=== PATIENT | male | born 1950 | race Caucasian/White ===

== ENCOUNTER 2017-01-03 12:18 | Outpatient (CLI) | payer MEDICARE ==
[2017-01-03 16:02] LABS: Bilirubin Negative (Negative); Blood, Urine Trace (Negative); Glucose, Urine (Dipstick) Negative (Negative); Ketone, Urine Negative (Negative); Nitrite Negative (Negative); Protein, Urine (Dipstick) Negative (Neg-Trace); Urobilinogen 0.2 mg/dL (0.2-1.0)
--- NOTE | 2017-01-03 16:03 | RAD ---
CHEST TWO VIEWS: History: Pre op. Comparison: None. FINDINGS: Lungs are clear. No pneumothorax or effusion. Cardiac silhouette and mediastinal contours are within normal limits. IMPRESSION: No acute intrathoracic abnormality. POS: [facility]
[2017-01-03 16:14] LABS: #Eosinphils 0.2 thou/uL (0.0-0.7); #Lymphocytes 1.9 thou/uL (1.20-3.40); #Monocytes 0.8 thou/uL (0.11-0.59); #Neutrophils 3.4 thou/uL (1.40-6.50); %Basophils 0.6 % (0.0-1.0); %Eosinophils 3.1 % (0.0-10.0); %Lymphocytes 30.1 % (21.0-51.0); %Monocytes 12.1 % (0.0-10.0); Hematocrit 44.1 % (42.0-52.0); Mean Platelet Volume 8.2 fL (7.4-10.4); Red Blood Cell (RBC) Count 4.44 mill/uL (4.70-6.10); White Blood Cell (WBC) Count 6.3 thou/uL (4.8-10.8)
[2017-01-03 16:14] LABS: Bacteria/HPF None Seen HPF (None Seen); Hyaline Casts/LPF 0-3 HYALINE CAST LPF (0-3 Hyaline); Squamous Epithelial None Seen HPF (0-3); WBC/HPF 0-3 HPF (0-3)
[2017-01-03 16:16] LABS: PTT 31.8 SEC (22.9-36.1); Prothrombin Time 13.8 SEC (12.0-14.7)
[2017-01-03 16:25] LABS: Anion Gap 12 mmol/L (10-20); BUN (Urea Nitrogen) 23 mg/dL (8.4-25.7); Calc. Creatinine Clearance 0 mL/min (70-130); Calcium 10.9 mg/dL (7.8-10.44); Carbon Dioxide 30 mmol/L (23-31); Chloride 103 mmol/L (98-107); Estimated GFR-MDRD Greater than 90
== END 2017-01-03 12:19 | disposition home or self-care (01) ==
LOC: LABBT 12:18
PROVIDERS: ATTEND Orthopaedic Surgery
DX: Z01.818 Encounter for other preprocedural examination (principal); M16.11 Unilateral primary osteoarthritis, right hip
CPT/HCPCS: 71020; 80048; 81001; 85025; 85610; 85730; 86850; 86900; 86901; 87081; 93005; 93010

== ENCOUNTER 2017-01-03 12:30 | Inpatient (IN) | payer MEDICARE ==
[2017-01-03 13:07] VITALS: BMI 30.5
[2017-01-10] MEDS ORDERED: Tranexamic Acid 1,000 MG/100 ML BAG ONE ×2 (08:21→11:55)
[2017-01-10] MEDS ORDERED: Vancomycin HCl 1.5 GM in Sodium Chloride 0.9% 250 ML 300 ML IVPB SCH (08:30)
[2017-01-10] MEDS ORDERED: Ondansetron HCl/PF 4 MG/2 ML Vial IVP PRN ×3 (08:38→10:21)
[2017-01-10] MEDS ORDERED: Zolpidem Tartrate 5 MG TAB PO PRN ×2 (08:38→09:30)
[2017-01-10] MEDS ORDERED: diphenhydrAMINE HCl 25 MG CAP PO PRN ×2 (08:38→09:30)
[2017-01-10] MEDS ORDERED: HYDROcodone/Acetaminophen 10/325 mg Tablet PO PRN ×2 (08:38)
[2017-01-10] MEDS ORDERED: Promethazine HCl 25 MG/ML VIAL IM PRN ×3 (08:38→10:21)
[2017-01-10] MEDS ORDERED: traMADol HCl 50 MG TAB PO PRN ×3 (08:38→09:30)
[2017-01-10] MEDS ORDERED: Fentanyl 100 MCG/2 ML VIAL SLOW IVP PRN ×2 (08:38)
[2017-01-10] MEDS ORDERED: Tranexamic Acid 1,000 MG in Sodium Chloride 0.9% 100 ML IVPB SCH (08:45)
[2017-01-10] MEDS ORDERED: Midazolam HCl 2 mg/2 ml Vial ONE (08:58)
[2017-01-10] MEDS ORDERED: Fentanyl 100 MCG/2 ML VIAL ONE (08:58)
[2017-01-10] MEDS: Aspirin 325 MG TAB PO SCH ×2 (09:00→20:35)
[2017-01-10 09:08] LABS: Bilirubin Negative (Negative); Blood, Urine Small (Negative); Glucose, Urine (Dipstick) Negative (Negative); Ketone, Urine Negative (Negative); Nitrite Negative (Negative); Protein, Urine (Dipstick) Negative (Neg-Trace); Urobilinogen 0.2 mg/dL (0.2-1.0)
[2017-01-10 09:10] LABS: Bacteria/HPF None Seen HPF (None Seen); Hyaline Casts/LPF 0-3 HYALINE CAST LPF (0-3 Hyaline); Squamous Epithelial None Seen HPF (0-3); WBC/HPF 0-3 HPF (0-3)
[2017-01-10] MEDS ORDERED: Bupivacaine PF 0.5% 30 ML VIAL ONE (09:21)
[2017-01-10] MEDS ORDERED: Fentanyl/Bupivacaine 250 ML in Premix Bag 1 BAG EPIDURAL SCH (09:30)
[2017-01-10] MEDS ORDERED: diphenhydrAMINE HCl 50 MG/ML 1 ML VIAL IM PRN (09:30)
[2017-01-10] MEDS ORDERED: Naloxone HCl 0.4 mg/ml Vial IVP PRN (09:30)
[2017-01-10] MEDS ORDERED: diphenhydrAMINE HCl 50 MG/ML 1 ML VIAL IVP PRN (09:30)
[2017-01-10] MEDS ORDERED: Promethazine HCl 25 MG SUPP PR PRN (09:30)
[2017-01-10] MEDS ORDERED: Bupivacaine 0.25% 10 ML VIAL EPIDURAL PRN (09:30)
[2017-01-10] MEDS ORDERED: HYDROcodone/Acetaminophen 5/325 mg Tablet PO PRN (09:30)
[2017-01-10] MEDS ORDERED: Naloxone HCl 0.4 mg/ml Vial IV PRN (09:30)
[2017-01-10] MEDS ORDERED: Eucerin (Mineral Oil/Petrolatum,White) 30 gm Jar TOP PRN (09:30)
[2017-01-10] MEDS ORDERED: PHENYLEPHRINE-NS 100 MCG/ML 10 ML SYRINGE ONE (09:50)
[2017-01-10] MEDS ORDERED: ePHEDrine/0.9% NaCl/PF SYRINGE 50 mg/10 ml ONE (09:50)
[2017-01-10] MEDS ORDERED: Propofol 200 MG/20 ML VIAL ONE (09:50)
[2017-01-10] MEDS ORDERED: Glycopyrrolate 0.2 MG/ML 5 ML SYRINGE ONE (09:50)
[2017-01-10] MEDS ORDERED: Ondansetron HCl/PF 4 MG/2 ML Vial ONE (09:50)
[2017-01-10] MEDS ORDERED: Promethazine HCl 25 MG/ML VIAL SLOW IVP PRN (10:21)
[2017-01-10] MEDS ORDERED: Fentanyl/Bupivacaine 250 ML EPIDURAL ONE (11:50)
--- NOTE | 2017-01-10 12:02 | OP ---
PREOPERATIVE DIAGNOSIS: Degenerative joint disease, right hip. POSTOPERATIVE DIAGNOSIS: Degenerative joint disease, right hip. SURGEON: Familia Michele M.D. OUTSIDE SALES ADVERTISING EXECUTIVE: Casie Islas BLOOD LOSS: 200 mL SPECIMEN: None. DRAINS: None. COMPLICATIONS: None. IMPLANTS USED: Orlin Accolade 4.5 stem with a -5 head, a 56 mm Tritanium cup with a 36 mm X3 line r. PROCEDURE IN DETAIL: After informed consent was obtained in the preoperative holding area, the jazzy ent was taken to the operative suite where general anesthesia was induced. The patient was then pos itioned in the lateral decubitus position. The hip was then prepped and draped in usual sterile fas hion. The patient received preoperative antibiotics. Prior to incision, time-out was called and ren driscoll members of the surgical team agreed upon site, surgeon, and patient. After this, a longitudinal i ncision was made directly over the trochanter, noted by palpation extending 2 fingerbreadths above a nd below the trochanter. The deeper subcutaneous layer was undermined with Bovie electrocautery. T he iliotibial band was encountered and incised sharply and the plane below this was developed bluntl y. A Charnley retractor was placed to hold this opened. The lateral aspect of the trochanter and t he abductor muscles were encountered and then reflected anteriorly off the trochanter using Bovie el ectrocautery. Once this was completed, the anterior capsule was then encountered and identified and copious capsulotomy was carried out, exposing the femoral neck and head. Dislocation maneuver was t hen performed and an in situ provisional neck cut was then made using the oscillating saw. Attentio n was then turned to acetabular preparation and sequential reaming was carried out up to the appropr iate diameter and a trial was then malleted into place with good firm resistance and no pullout. Th e permanent acetabular shell was then malleted squarely into place, as was the appropriate liner. O nce completed, the wound was copiously irrigated and attention was then turned to femoral preparatio n. Flexion and external rotation was performed of the exposed thigh and femoral elevators were then placed at the proximal aspect of the wound. Canal finder was used to establish the length of the ca nal and sequential reaming was carried out, followed by broaching. Once the appropriate stability w as established with the trial broaches with both flexion, extension and rotational stability, we did trial with neutral and 2 mm offset incremental necks. Once the appropriate size was decided upon, with good stability noted with flexion, extension, internal and external rotation and shuck being ne gative, we removed the femoral trial broach and malletted into place the permanent prosthesis with g ood firm fit, which was also stable to rotation. Again, the hip felt very stable to flexion, extens ion, internal and external rotation. Leg lengths appeared near anatomic clinically and we were quit e happy with prosthesis placement. Copious irrigation was then carried out through the entirety of the wound. Primary closure of the abductors was accomplished with interrupted #2 Vicryl figure-of-e ight stitches and the IT band was then closed with interrupted #2 Vicryl, oversewn with a #2 running barbed Quill stitch. Subcutaneous fascia was closed with running barbed Quill stitch and a subcuti cular Monocryl barbed Quill stitch was used for skin closure and augmented with skin cement. A ster ile dressing was applied. The procedure was terminated without any complication. All counts were co rrect. The patient was awakened in the operative suite and taken to the recovery room in stable con dition.
--- NOTE | 2017-01-10 14:09 | RAD ---
3 VIEW RIGHT HIP: Date: 01/10/17 INDICATION: Postop total hip. FINDINGS: There is a right hip arthroplasty. The femoral head overlies the acetabular cup. No perihardware laila ency is seen. Scattered osseous degenerative change present. IMPRESSION: Right hip prosthesis in place without evidence4 of hardware complication. POS: [facility]
--- NOTE | 2017-01-10 14:36 | PDOC.PN ---
- Subjective Encounter Start Date: 01/10/17 Encounter Start Time: 14:32 Pt seen for management of medical comorbidities including hypertension. Denies chest pain, shortness of breath, fevers or chills. - Objective MAR Reviewed: Yes Vital Signs & Weight: Vital Signs (12 hours) Temp Pulse Resp BP Pulse Ox 01/10/17 13:27 97.6 F 68 18 146/73 H 97 Weight Weight 225 lb Phys Exam - Physical Examination Constitutional: NAD HEENT: moist MMs, oral pharynx no lesions Neck: supple Respiratory: clear to auscultation bilateral Cardiovascular: RRR Gastrointestinal: soft Musculoskeletal: pulses present s/p R hip surgery Neurological: moves all 4 limbs Psychiatric: normal affect Dx/Plan (1) HTN (hypertension) Code(s): I10 - ESSENTIAL (PRIMARY) HYPERTENSION Status: Chronic (2) Osteoarthritis Code(s): M19.90 - UNSPECIFIED OSTEOARTHRITIS, UNSPECIFIED SITE Status: Chronic - Plan * .Resume home medications. Monitor vital signs, titrate antihypertensives as needed. Start PRN IV hydralazine. s/p R hip surgery. DVT prophylaxis and pain management per orthopedic surgery. Review of Systems - Review of Systems Constitutional: negative: Fever, Chills, Sweats, Weakness, Malaise Respiratory: negative: Cough, Dry, Shortness of Breath, Hemoptysis, SOB with Excertion, Pleuritic Pain, Sputum, Wheezing Cardiovascular: negative: Chest Pain, Palpitations, Orthopnea, Paroxysmal Noc. Dyspnea, Edema, Light Headedness - Medications/Allergies Allergies/Adverse Reactions: Allergies Allergy/AdvReac Type Severity Reaction Status Date / Time No Known Allergies Allergy Verified 01/03/17 13:07 Medications: Current Medications Acetaminophen (Tylenol) 650 mg PO Q4H PRN PRN Reason: ROBERTS/ T > 101F; Mild Pain (1-3) Hydrocodone Bitart/Acetaminophen ([place] 5/325) 1 tab PO Q4H PRN PRN Reason: Mild Pain 0-3 Hydrocodone Bitart/Acetaminophen ([place] 5/325) 2 tab PO Q4H PRN PRN Reason: For Moderate Pain 4-6 Aspirin (Aspirin) 325 mg PO BID [facility] Bupivacaine HCl (Marcaine) 5 ml EPIDURAL ONE PRN PRN Reason: UNCONTROLLED PAIN Stop: 01/13/17 09:31 Cefazolin Sodium (Ancef) 2 gm SLOW IVP 0100,1700 [facility] Stop: 01/11/17 01:01 Cholecalciferol (Vitamin D3) 5,000 units PO DAILY [facility] Diphenhydramine HCl (Benadryl) 25 mg PO Q3H PRN PRN Reason: Itching Diphenhydramine HCl (Benadryl) 25 mg IM Q3H PRN PRN Reason: Itching Diphenhydramine HCl (Benadryl) 25 mg IVP Q3H PRN PRN Reason: Itching Ferrous Gluconate (Fergon) 324 mg PO BID[facility] Lisinopril/HCTZ (Prinizide 10-12.5) 1 tab PO DAILY [facility] Sodium Chloride (Normal Saline 0.9%) 1,000 mls @ 100 mls/hr IV .Q10H [facility] Fentanyl Citrate 250 ml/ (Device) 250 mls @ 6 mls/hr EPIDURAL INF [facility] Iron/Minerals/Multivitamins (Theragran M) 1 tab PO DAILY [facility] Ketorolac Tromethamine (Toradol) 15 mg IVP Q8HR [facility] Stop: 01/12/17 14:01 Magnesium Oxide (Magnesium Oxide) 400 mg PO QAM [facility] Mineral Oil/White Petrolatum (Eucerin Cream) 0 gm TOP PRN PRN PRN Reason: Itching Naloxone HCl (Narcan) 0.2 mg IV Q5MIN PRN PRN Reason: RR <=8 OR OBTUNDED/UNAROUSABLE Naloxone HCl (Narcan) 0.1 mg IVP Q15MIN PRN PRN Reason: URINARY RETENTION (Prevagen 1 Cap) 1 cap PO QAM [facility] Ondansetron HCl (Zofran) 4 mg IVP Q6H PRN PRN Reason: Nausea/Vomiting Promethazine HCl (Phenergan) 12.5 mg IM Q4H PRN PRN Reason: Nausea Promethazine HCl (Phenergan Suppository) 25 mg [place] Q4H PRN PRN Reason: Nausea/Vomiting Senna/Docusate Sodium (Senokot S) 2 tab PO BID [facility] Sodium Chloride (Flush - Normal Saline) 10 ml IVF PRN PRN PRN Reason: Saline Flush Tramadol HCl (Ultram) 50 mg PO Q6H PRN PRN Reason: Mild Pain 1-3 Tramadol HCl (Ultram) 100 mg PO Q6H PRN PRN Reason: Moderate Pain 4-6 Zolpidem Tartrate (Ambien) 5 mg PO HSPRN PRN PRN Reason: Insomnia
[2017-01-10] MEDS: Sodium Chloride 0.9% 1,000 ML IV SCH ×2 (14:50→17:59)
[2017-01-10] MEDS: Lisinopril/Hydrochlorothiazide 10 mg/12.5 mg Tablet PO SCH (14:52)
[2017-01-10] MEDS: Magnesium Oxide 400 MG TAB PO SCH (14:52)
[2017-01-10] MEDS: Ketorolac Tromethamine 30 MG/ML VIAL IVP SCH ×2 (17:09→20:35)
[2017-01-10] MEDS ORDERED: FLU VACC TS2017-18 (>65YR) 0.5 ML SYRINGE IM ONE (21:00)
[2017-01-11] MEDS: Sodium Chloride 0.9% 1,000 ML IV SCH ×3 (01:01→21:38)
[2017-01-11] MEDS: Acetaminophen 325 MG TAB PO PRN ×3 (04:01→23:52)
[2017-01-11 05:13] LABS: Hematocrit 37.7 % (42.0-52.0); Mean Platelet Volume 7.7 fL (7.4-10.4); Red Blood Cell (RBC) Count 3.86 mill/uL (4.70-6.10); White Blood Cell (WBC) Count 7.4 thou/uL (4.8-10.8)
[2017-01-11] MEDS: Ketorolac Tromethamine 30 MG/ML VIAL IVP SCH ×3 (06:28→21:16)
[2017-01-11] MEDS: Aspirin 325 MG TAB PO SCH ×2 (08:31→20:11)
[2017-01-11] MEDS: Senokot S 8.6-50 MG TAB PO SCH ×2 (08:31→20:10)
[2017-01-11] MEDS: Lisinopril/Hydrochlorothiazide 10 mg/12.5 mg Tablet PO SCH (08:32)
[2017-01-11] MEDS: Ferrous Gluconate 324 MG TAB PO SCH ×2 (08:32→18:02)
[2017-01-11] MEDS: Famotidine 20 MG TAB PO SCH ×2 (08:32→20:11)
[2017-01-11] MEDS: Magnesium Oxide 400 MG TAB PO SCH (08:32)
[2017-01-11] MEDS: Multivitamin W/ Minerals 1 TAB PO SCH (08:32)
--- NOTE | 2017-01-11 09:11 | RAD ---
PORTABLE AP CHEST: Date: 01-11-17 History: Fever. Comparison: 01-03-17 FINDINGS: Cardiac silhouette is magnified by projection. Pulmonary vasculature is within normal limits. Lungs are clear. Metallic wire overlies the left chest, probably related to overlying artifact. Surgical c lips overlie the right upper quadrant. No other interval change. IMPRESSION: No acute cardiopulmonary process. POS: [facility]
--- NOTE | 2017-01-11 10:03 | PDOC.PN ---
- Subjective Encounter Start Date: 01/11/17 Encounter Start Time: 07:20 -: old records requested/rev last night pt had fever, blood culture done, has post nasal drip, no cough, no UTI symptoms - Objective Resuscitation Status: Resuscitation Status FULL:Full Resuscitation MAR Reviewed: Yes Vital Signs & Weight: Vital Signs (12 hours) Temp Pulse Resp BP Pulse Ox 01/11/17 08:32 66 01/11/17 08:25 99.9 F H 66 18 01/11/17 08:00 99.9 F H 66 14 103/63 85 L 01/11/17 05:00 101.7 F H 01/11/17 04:43 76 18 103/58 L 93 L 01/11/17 04:15 102.6 F H 01/11/17 01:36 99.7 F H 01/11/17 00:22 101.9 F H 89 16 125/58 L Weight Weight 225 lb I&O: 01/10/17 01/11/17 01/12/17 06:59 06:59 06:59 Intake Total 400 Output Total 1850 Balance -1450 Result Diagrams: 01/11/17 04:23 Radiology Reviewed by me: Yes (chest xray) Phys Exam - Physical Examination Constitutional: NAD HEENT: PERRLA, moist MMs, sclera anicteric Neck: no JVD, supple Respiratory: no wheezing, no rales, no rhonchi Cardiovascular: RRR, no significant murmur, no rub Gastrointestinal: soft, non-tender, no distention, positive bowel sounds Musculoskeletal: no edema, pulses present right hip surgical site with dressing Neurological: non-focal, normal sensation, moves all 4 limbs Lymphatic: no nodes Psychiatric: normal affect, A&O x 3 Skin: no rash, normal turgor Dx/Plan (1) Status post total hip replacement, right Code(s): Z96.641 - PRESENCE OF RIGHT ARTIFICIAL HIP JOINT Status: Acute (2) HTN (hypertension) Code(s): I10 - ESSENTIAL (PRIMARY) HYPERTENSION Status: Chronic (3) Obesity (BMI 30.0-34.9) Code(s): E66.9 - OBESITY, UNSPECIFIED Status: Chronic (4) Osteoarthritis Code(s): M19.90 - UNSPECIFIED OSTEOARTHRITIS, UNSPECIFIED SITE Status: Chronic - Plan cont current plan of care, plan discussed w/ family, PT/OT * will do chest xray and done and reviewed * send urine culture * most likely reactive fever after surgery * will monitor * follow culture * continue aspirin for DVT prophyalxis * continue pepcid for GI prophylaxis * Nerve block as per anesthesia * pain controlled * discussed with family * medication reviewed as below * symptomatic treatment * Code status- Full code * continue Ferrous sulfate * overall medically stable. Review of Systems - Review of Systems Constitutional: Fever. negative: Chills, Sweats, Weakness, Malaise, Other ENT: negative: Ear Pain, Ear Discharge, Nose Pain, Nose Discharge, Nose Congestion, Mouth Pain, Mouth Swelling, Throat Pain, Throat Swelling, Other Respiratory: negative: Cough, Dry, Shortness of Breath, Hemoptysis, SOB with Excertion, Pleuritic Pain, Sputum, Wheezing Cardiovascular: negative: Chest Pain, Palpitations, Orthopnea, Paroxysmal Noc. Dyspnea, Edema, Light Headedness, Other Gastrointestinal: negative: Nausea, Vomiting, Abdominal Pain, Diarrhea, Constipation, Melena, Hematochezia, Other Genitourinary: negative: Dysuria, Frequency, Incontinence, Hematuria, Retention , Other Musculoskeletal: negative: Neck Pain, Shoulder Pain, Arm Pain, Back Pain, Hand Pain, Leg Pain, Foot Pain, Other Skin: negative: Rash, Lesions, Saad, Bruising, Other - Medications/Allergies Allergies/Adverse Reactions: Allergies Allergy/AdvReac Type Severity Reaction Status Date / Time No Known Allergies Allergy Verified 01/03/17 13:07 Medications: Current Medications Acetaminophen (Tylenol) 650 mg PO Q4H PRN PRN Reason: ROBERTS/ T > 101F; Mild Pain (1-3) Last Admin: 01/11/17 04:01 Dose: 650 mg Hydrocodone Bitart/Acetaminophen ([place] 5/325) 1 tab PO Q4H PRN PRN Reason: Mild Pain 0-3 Hydrocodone Bitart/Acetaminophen ([place] 5/325) 2 tab PO Q4H PRN PRN Reason: For Moderate Pain 4-6 Aspirin (Aspirin) 325 mg PO BID [facility] Last Admin: 01/11/17 08:31 Dose: 325 mg Bupivacaine HCl (Marcaine) 5 ml EPIDURAL ONE PRN PRN Reason: UNCONTROLLED PAIN Stop: 01/13/17 09:31 Cholecalciferol (Vitamin D3) 5,000 units PO DAILY [facility] Last Admin: 01/11/17 08:31 Dose: 5,000 units Diphenhydramine HCl (Benadryl) 25 mg PO Q3H PRN PRN Reason: Itching Last Admin: 01/10/17 20:35 Dose: 25 mg Diphenhydramine HCl (Benadryl) 25 mg IM Q3H PRN PRN Reason: Itching Diphenhydramine HCl (Benadryl) 25 mg IVP Q3H PRN PRN Reason: Itching Famotidine (Pepcid) 20 mg PO BID [facility] Last Admin: 01/11/17 08:32 Dose: 20 mg Ferrous Gluconate (Fergon) 324 mg PO BID-[facility] Last Admin: 01/11/17 08:32 Dose: 324 mg Lisinopril/HCTZ (Prinizide 10-12.5) 1 tab PO DAILY [facility] Last Admin: 01/11/17 08:32 Dose: 1 tab Sodium Chloride (Normal Saline 0.9%) 1,000 mls @ 100 mls/hr IV .Q10H [facility] Last Admin: 01/11/17 01:01 Dose: Not Given Fentanyl Citrate 250 ml/ (Device) 250 mls @ 6 mls/hr EPIDURAL INF [facility] Iron/Minerals/Multivitamins (Theragran M) 1 tab PO DAILY [facility] Last Admin: 01/11/17 08:32 Dose: 1 tab Ketorolac Tromethamine (Toradol) 15 mg IVP Q8HR [facility] Stop: 01/12/17 14:01 Last Admin: 01/11/17 06:28 Dose: 15 mg Magnesium Oxide (Magnesium Oxide) 400 mg PO QAM [facility] Last Admin: 01/11/17 08:32 Dose: 400 mg Mineral Oil/White Petrolatum (Eucerin Cream) 0 gm TOP PRN PRN PRN Reason: Itching Naloxone HCl (Narcan) 0.2 mg IV Q5MIN PRN PRN Reason: RR <=8 OR OBTUNDED/UNAROUSABLE Naloxone HCl (Narcan) 0.1 mg IVP Q15MIN PRN PRN Reason: URINARY RETENTION Ondansetron HCl (Zofran) 4 mg IVP Q6H PRN PRN Reason: Nausea/Vomiting Promethazine HCl (Phenergan) 12.5 mg IM Q4H PRN PRN Reason: Nausea Promethazine HCl (Phenergan Suppository) 25 mg [place] Q4H PRN PRN Reason: Nausea/Vomiting Senna/Docusate Sodium (Senokot S) 2 tab PO BID [facility] Last Admin: 01/11/17 08:31 Dose: 2 tab Sodium Chloride (Flush - Normal Saline) 10 ml IVF PRN PRN PRN Reason: Saline Flush Tramadol HCl (Ultram) 50 mg PO Q6H PRN PRN Reason: Mild Pain 1-3 Tramadol HCl (Ultram) 100 mg PO Q6H PRN PRN Reason: Moderate Pain 4-6 Zolpidem Tartrate (Ambien) 5 mg PO HSPRN PRN PRN Reason: Insomnia
[2017-01-12 05:18] LABS: Hematocrit 36.1 % (42.0-52.0); Mean Platelet Volume 7.7 fL (7.4-10.4); Red Blood Cell (RBC) Count 3.67 mill/uL (4.70-6.10); White Blood Cell (WBC) Count 10.6 thou/uL (4.8-10.8)
[2017-01-12] MEDS: Ketorolac Tromethamine 30 MG/ML VIAL IVP SCH (05:49)
[2017-01-12] MEDS: Aspirin 325 MG TAB PO SCH (08:44)
[2017-01-12] MEDS: Ferrous Gluconate 324 MG TAB PO SCH (08:44)
[2017-01-12] MEDS: Famotidine 20 MG TAB PO SCH (08:45)
[2017-01-12] MEDS: Magnesium Oxide 400 MG TAB PO SCH (08:45)
[2017-01-12] MEDS: Senokot S 8.6-50 MG TAB PO SCH (08:45)
[2017-01-12] MEDS: Lisinopril/Hydrochlorothiazide 10 mg/12.5 mg Tablet PO SCH (08:45)
[2017-01-12] MEDS: Multivitamin W/ Minerals 1 TAB PO SCH (08:45)
[2017-01-12] MEDS: HYDROcodone/Acetaminophen 5/325 mg Tablet PO PRN ×2 (08:47→13:35)
[2017-01-12] MEDS: Sodium Chloride 0.9% 1,000 ML IV SCH (09:11)
--- NOTE | 2017-01-12 10:09 | PDOC.PN ---
- Subjective Encounter Start Date: 01/12/17 Encounter Start Time: 07:40 Patient seen and examined. No new complaints. No overnight events, no fever today - Objective Resuscitation Status: Resuscitation Status FULL:Full Resuscitation MAR Reviewed: Yes Vital Signs & Weight: Vital Signs (12 hours) Temp Pulse Resp BP Pulse Ox 01/12/17 08:45 72 01/12/17 08:29 99 F 72 14 01/12/17 07:40 99 F 72 14 114/57 L 95 01/12/17 04:00 98.5 F 70 18 118/70 97 01/12/17 00:39 98.6 F 64 18 101/61 96 Weight Admit Weight 225 lb Weight 225 lb I&O: 01/11/17 01/12/17 01/13/17 06:59 06:59 06:59 Intake Total 400 2353.0 Output Total 1850 2500 Balance -1450 -147.0 Result Diagrams: 01/12/17 04:46 Phys Exam - Physical Examination Constitutional: NAD HEENT: PERRLA, moist MMs, sclera anicteric Neck: no JVD, supple Respiratory: no wheezing, no rales, no rhonchi Cardiovascular: RRR, no significant murmur, no rub Gastrointestinal: soft, non-tender, no distention, positive bowel sounds Musculoskeletal: no edema, pulses present Neurological: non-focal, normal sensation, moves all 4 limbs Psychiatric: normal affect, A&O x 3 Skin: no rash, normal turgor Dx/Plan (1) Status post total hip replacement, right Code(s): Z96.641 - PRESENCE OF RIGHT ARTIFICIAL HIP JOINT Status: Acute (2) HTN (hypertension) Code(s): I10 - ESSENTIAL (PRIMARY) HYPERTENSION Status: Chronic (3) Obesity (BMI 30.0-34.9) Code(s): E66.9 - OBESITY, UNSPECIFIED Status: Chronic (4) Osteoarthritis Code(s): M19.90 - UNSPECIFIED OSTEOARTHRITIS, UNSPECIFIED SITE Status: Chronic - Plan cont current plan of care, PT/OT * continue aspirin for DVT prophyalxis * continue pepcid for GI prophylaxis * epidural as per anesthesia * pain controlled * discussed with family * medication reviewed as below * symptomatic treatment * Code status- Full code * continue Ferrous sulfate * overall medically stable. * plan for discharge today * will sign off.. Review of Systems - Review of Systems ENT: negative: Ear Pain, Ear Discharge, Nose Pain, Nose Discharge, Nose Congestion, Mouth Pain, Mouth Swelling, Throat Pain, Throat Swelling, Other Respiratory: negative: Cough, Dry, Shortness of Breath, Hemoptysis, SOB with Excertion, Pleuritic Pain, Sputum, Wheezing Cardiovascular: negative: Chest Pain, Palpitations, Orthopnea, Paroxysmal Noc. Dyspnea, Edema, Light Headedness, Other Gastrointestinal: negative: Nausea, Vomiting, Abdominal Pain, Diarrhea, Constipation, Melena, Hematochezia, Other Genitourinary: negative: Dysuria, Frequency, Incontinence, Hematuria, Retention , Other Musculoskeletal: negative: Neck Pain, Shoulder Pain, Arm Pain, Back Pain, Hand Pain, Leg Pain, Foot Pain, Other - Medications/Allergies Allergies/Adverse Reactions: Allergies Allergy/AdvReac Type Severity Reaction Status Date / Time No Known Allergies Allergy Verified 01/03/17 13:07 Medications: Current Medications Acetaminophen (Tylenol) 650 mg PO Q4H PRN PRN Reason: ROBERTS/ T > 101F; Mild Pain (1-3) Last Admin: 01/11/17 23:52 Dose: 650 mg Hydrocodone Bitart/Acetaminophen ([place] 5/325) 1 tab PO Q4H PRN PRN Reason: Mild Pain 0-3 Hydrocodone Bitart/Acetaminophen ([place] 5/325) 2 tab PO Q4H PRN PRN Reason: For Moderate Pain 4-6 Last Admin: 01/12/17 08:47 Dose: 2 tab Aspirin (Aspirin) 325 mg PO BID [facility] Last Admin: 01/12/17 08:44 Dose: 325 mg Bupivacaine HCl (Marcaine) 5 ml EPIDURAL ONE PRN PRN Reason: UNCONTROLLED PAIN Stop: 01/13/17 09:31 Cholecalciferol (Vitamin D3) 5,000 units PO DAILY [facility] Last Admin: 01/12/17 08:46 Dose: 5,000 units Diphenhydramine HCl (Benadryl) 25 mg PO Q3H PRN PRN Reason: Itching Last Admin: 01/10/17 20:35 Dose: 25 mg Diphenhydramine HCl (Benadryl) 25 mg IM Q3H PRN PRN Reason: Itching Diphenhydramine HCl (Benadryl) 25 mg IVP Q3H PRN PRN Reason: Itching Famotidine (Pepcid) 20 mg PO BID [facility] Last Admin: 01/12/17 08:45 Dose: 20 mg Ferrous Gluconate (Fergon) 324 mg PO BID-[facility] Last Admin: 01/12/17 08:44 Dose: 324 mg Lisinopril/HCTZ (Prinizide 10-12.5) 1 tab PO DAILY [facility] Last Admin: 01/12/17 08:45 Dose: 1 tab Sodium Chloride (Normal Saline 0.9%) 1,000 mls @ 100 mls/hr IV .Q10H [facility] Last Admin: 01/12/17 09:11 Dose: Not Given Fentanyl Citrate 250 ml/ (Device) 250 mls @ 6 mls/hr EPIDURAL INF [facility] Iron/Minerals/Multivitamins (Theragran M) 1 tab PO DAILY [facility] Last Admin: 01/12/17 08:45 Dose: 1 tab Ketorolac Tromethamine (Toradol) 15 mg IVP Q8HR [facility] Stop: 01/12/17 14:01 Last Admin: 01/12/17 05:49 Dose: 15 mg Magnesium Oxide (Magnesium Oxide) 400 mg PO QAM [facility] Last Admin: 01/12/17 08:45 Dose: 400 mg Mineral Oil/White Petrolatum (Eucerin Cream) 0 gm TOP PRN PRN PRN Reason: Itching Naloxone HCl (Narcan) 0.2 mg IV Q5MIN PRN PRN Reason: RR <=8 OR OBTUNDED/UNAROUSABLE Naloxone HCl (Narcan) 0.1 mg IVP Q15MIN PRN PRN Reason: URINARY RETENTION Ondansetron HCl (Zofran) 4 mg IVP Q6H PRN PRN Reason: Nausea/Vomiting Promethazine HCl (Phenergan) 12.5 mg IM Q4H PRN PRN Reason: Nausea Promethazine HCl (Phenergan Suppository) 25 mg [place] Q4H PRN PRN Reason: Nausea/Vomiting Senna/Docusate Sodium (Senokot S) 2 tab PO BID [facility] Last Admin: 01/12/17 08:45 Dose: 2 tab Sodium Chloride (Flush - Normal Saline) 10 ml IVF PRN PRN PRN Reason: Saline Flush Last Admin: 01/12/17 05:50 Dose: 10 ml Tramadol HCl (Ultram) 50 mg PO Q6H PRN PRN Reason: Mild Pain 1-3 Tramadol HCl (Ultram) 100 mg PO Q6H PRN PRN Reason: Moderate Pain 4-6 Zolpidem Tartrate (Ambien) 5 mg PO HSPRN PRN PRN Reason: Insomnia
--- NOTE | 2017-01-12 11:23 | DIS ---
DATE OF ADMISSION: 01/10/2017 DATE OF DISCHARGE: 01/12/2017 PRIMARY CARE PHYSICIAN: Rick Carbone M.D. DISCHARGE DISPOSITION: Home. PRIMARY DISCHARGE DIAGNOSIS: Right total hip replacement. SECONDARY DISCHARGE DIAGNOSES: Hypertension, obesity with body mass index 30, osteoarthritis. PRIMARY PROCEDURE/OPERATION: Right total hip replacement. RADIOLOGICAL INVESTIGATION: Hip x-ray. SIGNIFICANT LABORATORY DATA: Hemoglobin 12.1. Urinalysis normal. Chest x-ray normal. DISCHARGE MEDICATIONS: Aspirin 325 mg p.o. b.i.d., vitamin D3 5000 units p.o. daily, glucosamine ch ondroitin sulfate 1 capsule p.o. daily, Prinzide one tablet daily, magnesium 400 mg p.o. daily, fish oil 1 capsule p.o. daily. CONTRAINDICATIONS: None. CODE STATUS: FULL CODE. INPATIENT CONSULTANTS: Dr. Michele with [facility] was consulted for medical comanagement. TEST RESULTS PENDING ON DISCHARGE: None. ALLERGIES: No known drug allergy. DISCHARGE PLAN: Post hospital, the patient will follow up with Dr. Leny Barbosa on 02/13/2017 at 09 :15 a.m. Patient will follow up with Dr. Raf Cabrera as instructed. HOSPITAL COURSE: A 66-year-old male who was admitted by Dr. Michele for right total hip replacement which was done on 01/10/2017 without any complications. Postoperatively, a [facility] was consulted for medical comanagement. The patient's medical problems remained stable. We con tinued patient's home medication while in hospital as well as on discharge. The patient had an epis ode of fever while in hospital and that is why we did chest x-ray and urinalysis, but that was ras l. His blood culture was also normal. Patient did not have any further fever while in hospital. The patient is doing very well with the [facility] Protocol Treatment. Patient is planned for discharge by primary team today. The patient is seen and examined at bedside today. Please see my progress note from today for furth er details.
[2017-01-12 12:05] VITALS: BP 115/60; TEMP 98.2
== END 2017-01-12 18:09 | disposition home or self-care (01) | DRG 470 ==
LOC: SJJU 01-10 08:02
PROVIDERS: ADMIT Orthopaedic Surgery; ATTEND Orthopaedic Surgery
PROC: 0SR901A Replacement of Right Hip Joint with Metal Synthetic Substitute, Uncemented, Open Approach (ICD-10-PCS; principal; 2017-01-10)
DX: M16.11 Unilateral primary osteoarthritis, right hip (principal); E66.9 Obesity, unspecified; I10 Essential (primary) hypertension; Z68.30 Body mass index [BMI] 30.0-30.9, adult
CPT/HCPCS: 36415; 71010; 81001; 85027; 87040; C1776; G8978-GP-CM; G8979-GP-CI; G8987-GO-CK; G8988-GO-CI; J1885; J2250; J2405; J2704; J3010; J3370; J7050; S0020

== ENCOUNTER 2017-04-13 12:51 | Outpatient (CLI) | payer MEDICARE ==
[2017-04-13 14:01] LABS: Hemoglobin 14.6 g/dL (14.0-18.0); Mean Corpuscular HGB CONC 32.5 g/dL (32.0-36.0); Mean Corpuscular Hemoglobin 30.9 pg (27.0-31.0); Mean Corpuscular Volume 95.1 fl (80.0-94.0); Platelet Count 156 thou/uL (130-400); RBC Distribution Width 13.1 % (11.5-14.5); Red Blood Cell (RBC) Count 4.71 mill/uL (4.70-6.10); White Blood Cell (WBC) Count 6.5 thou/uL (4.8-10.8)
[2017-04-13 14:42] LABS: Anion Gap 14 mmol/L (10-20); BUN (Urea Nitrogen) 15 mg/dL (8.4-25.7); Calc. Creatinine Clearance 0 mL/min (70-130); Calcium 11.3 mg/dL (7.8-10.44); Carbon Dioxide 28 mmol/L (23-31); Chloride 103 mmol/L (98-107); Estimated GFR-MDRD 70; Glucose 92 mg/dL (80-115); Sodium 140 mmol/L (136-145)
== END 2017-04-13 12:52 | disposition home or self-care (01) ==
LOC: LABBT 12:51
PROVIDERS: ATTEND Podiatrist Foot & Ankle Surgery
DX: Z01.812 Encounter for preprocedural laboratory examination (principal); M20.42 Other hammer toe(s) (acquired), left foot; M77.42 Metatarsalgia, left foot
CPT/HCPCS: 80048; 85027

== ENCOUNTER 2017-04-18 10:16 | Day surgery (SDC) | payer MEDICARE ==
[2017-04-13 13:22] VITALS: BMI 31.1
[2017-04-18] MEDS ORDERED: CEFAZOLIN/Water 2 GM/20 ML SYRINGE ONE (11:36)
[2017-04-18] MEDS ORDERED: HYDROmorphone 0.5 MG/0.5 ML SYRINGE ONE (11:52)
[2017-04-18] MEDS ORDERED: Midazolam HCl 2 mg/2 ml Vial ONE (11:52)
[2017-04-18] MEDS ORDERED: Fentanyl 100 MCG/2 ML VIAL ONE (11:52)
[2017-04-18] MEDS ORDERED: Propofol 500 MG/50 ML VIAL ONE (11:53)
[2017-04-18] MEDS ORDERED: Bupivacaine 0.25% HCL 30 ML VIAL ONE (11:55)
[2017-04-18] MEDS ORDERED: Bupivacaine PF 0.5% 30 ML VIAL ONE (11:56)
[2017-04-18] MEDS ORDERED: Lidocaine 1% PF 5 ML VIAL ONE (12:46)
[2017-04-18] MEDS ORDERED: Ondansetron HCl/PF 4 MG/2 ML Vial ONE (12:46)
[2017-04-18] MEDS ORDERED: Propofol 200 MG/20 ML VIAL ONE (12:46)
[2017-04-18] MEDS ORDERED: Ketorolac Tromethamine 30 MG/ML VIAL ONE (12:46)
[2017-04-18] MEDS ORDERED: ePHEDrine/0.9% NaCl/PF SYRINGE 50 mg/10 ml ONE (12:46)
[2017-04-18] MEDS ORDERED: Dexamethasone 20 MG/5 ML VIAL ONE (12:46)
--- NOTE | 2017-04-18 14:46 | OP ---
DATE OF PROCEDURE: 04/18/2017 SURGEON: Cait Duval DPM. PREOPERATIVE DIAGNOSES: Hammertoes digits 2 through 4, left foot, metatarsalgia 2 and 3, left foot, dislocation of metatarsophalangeal joint, 2 and 3, and left foot pain, left foot. POSTOPERATIVE DIAGNOSES: Hammertoes digits 2 through 4, left foot, metatarsalgia 2 and 3, left foot, dislocation of metatarsophalangeal joint, 2 and 3, and left foot pain, left foot. PROCEDURES: Arthrodesis of the proximal and phalangeal joint digits 2 through 4, left foot, Karen ost eotomy metatarsals 2 and 3, left foot. INJECTABLES: 20 mL of 0.5% Marcaine plain. HEMOSTASIS: Pneumatic ankle tourniquet at 250 mmHg. ESTIMATED BLOOD LOSS: Less than 5 mL. ANESTHESIA: General with local foot block. MATERIALS: 5 headless compression screws by Patient Communicator, 4-0 Vicryl and 3-0 nylon. PROCEDURE IN DETAIL: The patient was brought into the operating room and placed on the operating tab le in supine position, well-padded pneumatic ankle tourniquet was placed about the patient's left ank le. Following initiation of IV anesthesia, local foot block was given utilizing 20 mL of 0.5% Marcai ne plain. The foot was then scrubbed, prepped and draped in usual aseptic manner. Esmarch bandage w as used to exsanguinate the patient's left foot and the pneumatic ankle tourniquet was then inflated to 250 mmHg, which provided adequate hemostasis throughout the entire procedure. Next, attention was then directed to the dorsal aspect of the patient's left foot where semi elliptical incisions were m abisai over the proximal interphalangeal joint of digits 2, 3 and 4 resecting excess skin and from the d igit. Upon adequate exposure of the tendon, a transverse tenotomy was performed exposing the head of the first metatarsal as well as the base of the proximal phalanx. Next, a sagittal bone saw was use d to resect the head of the proximal phalanx and a bur was used to remove the cartilage from the base of the intermediate phalanx. Next, utilizing techniques and principles of Patient Communicator, a K-wire was driven through the intermediate and distal phalanx exiting toe and retrograded back into the pro ximal phalanx. Fluoroscopy was used to assure proper alignment and all were noted to be correct at t his time. Next, the bone was drilled and a 2.4 x 40 mm screw was placed across each osteotomy site t hrough the distal incision at the distal aspect of the digit. The same procedure was then performed on digits 3 and 4. Attention was then directed to the dorsal aspect of the patient's foot where a 5 cm linear longitudinal incision was made over the dorsal aspect of the second inner space. The incis ion was deepened through subcuticular structures with care being taken to retract all neurovascular s tructures. All bleeders were cauterized as necessary. Next, a longitudinal capsulotomy was performe d exposing the head of the second and third metatarsals. Upon adequate exposure, an oblique osteotom y was performed shifting the head of the metatarsal into a more corrected lateral position. This was performed on both the second and third metatarsals. Next, utilizing the techniques and principals o f [employer], a headless compression screw was placed across the osteotomy site from dorsal to plantar. Fluoroscopy was used to assure proper alignment correction and shortening of the metatarsal, all wer e noted to be correct at this time. The wounds were irrigated with copious amounts of sterile normal saline and mixture and the skin and subcuticular and tendon structures were then carefully reappr oximated and coapted utilizing 4-0 Vicryl and the skin was closed utilizing using 3-0 nylon in a simp le interrupted suture technique. Light compressive dressing was placed about the patient's left foot and the pneumatic ankle tourniquet was released with prompt hyperemic response noted to all digits o f the left foot. DISCHARGE SUMMARY: The patient tolerated procedure and anesthesia, and was transferred to the [facility] room with vital signs stable and vascular status intact to all digits of the left foot. Following a period of postoperative monitoring, the patient is to be discharged home. Should he have any prob lems prior to the first postoperative appointment, he will be advised to call and will be seen within 1 week of the procedure, otherwise.
--- NOTE | 2017-04-18 14:52 | RAD ---
RADIOGRAPH LEFT FOOT THREE VIEWS: Date: 04-18-17 Time: 2:29 p.m. History: 66-year-old male status post left foot surgery. Comparison: None. FINDINGS: There are three partially threaded screws traversing the long axes of the 2nd, 3rd, and 4th digits, e ntering the distal phalanges, traversing the DIP's and PIP's, with distal tips at the bases of the pr oximal phalanges. There are two craniocaudally oriented short screws through the heads of the 2nd and 3rd metatarsals. There are oblique fractures of indeterminate age, perhaps surgical, across the neck s of the 2nd and 3rd metatarsals. The screws do not traverse these fractures. There is minimal overla p of cortical margins laterally, but fracture lucencies are not visible. Moderately large plantar fatou caneal enthesophyte and Achilles tendon insertion site enthesophyte. IMPRESSION: 1. Arthrodesis screws through the 2nd, 3rd, and 4th proximal and distal interphalangeal joints. 2. Screws at the heads of the 2nd the 3rd metatarsals. 3. Osteotomies or fractures with minimal displacement at the distal metaphyses of the second and thir d metatarsals. POS: [facility]
== END 2017-04-18 16:48 | disposition home or self-care (01) ==
LOC: SDC 10:16
PROVIDERS: ATTEND Podiatrist Foot & Ankle Surgery
PROC: 0SGN0ZZ (ICD-10-PCS; principal; 2017-04-18)
PROC: 0QBP0ZZ Excision of Left Metatarsal, Open Approach (ICD-10-PCS; 2017-04-18)
DX: M20.42 Other hammer toe(s) (acquired), left foot (principal); S93.125A Dislocation of metatarsophalangeal joint of left lesser toe(s), initial encounter; Z88.5 Allergy status to narcotic agent; Z88.0 Allergy status to penicillin; Z98.890 Other specified postprocedural states
CPT/HCPCS: 28285 ×3; 28308 ×2; 73630; 76001; C1713; J1170; J2250; J2704; J3010; S0020

== ENCOUNTER 2017-12-12 10:22 | Outpatient (CLI) | payer MEDICARE ==
[2017-12-12 12:11] LABS: Anion Gap 11 mmol/L (10-20); BUN (Urea Nitrogen) 18 mg/dL (8.4-25.7); Calc. Creatinine Clearance 0 mL/min (70-130); Calcium 11.1 mg/dL (7.8-10.44); Carbon Dioxide 27 mmol/L (23-31); Chloride 106 mmol/L (98-107); Estimated GFR-MDRD Greater than 90; Glucose 89 mg/dL (80-115); Hemoglobin 14.7 g/dL (14.0-18.0); Mean Corpuscular HGB CONC 32.7 g/dL (32.0-36.0); Mean Corpuscular Hemoglobin 31.7 pg (27.0-31.0); Mean Platelet Volume 8.3 fL (7.4-10.4); Platelet Count 159 thou/uL (130-400); Potassium 4.1 mmol/L (3.5-5.1); RBC Distribution Width 12.2 % (11.5-14.5); Red Blood Cell (RBC) Count 4.63 mill/uL (4.70-6.10); Sodium 140 mmol/L (136-145); White Blood Cell (WBC) Count 6.8 thou/uL (4.8-10.8)
--- NOTE | 2017-12-17 16:44 | EKG ---
Test Reason : Blood Pressure : / mmHG Vent. Rate : 051 BPM Atrial Rate : 051 BPM P-R Int : 164 ms QRS Dur : 100 ms QT Int : 410 ms P-R-T Axes : -18 049 -10 degrees QTc Int : 377 ms Sinus bradycardia Nonspecific T wave abnormality Abnormal ECG When compared with ECG of 03-JAN-2017 13:23, No significant change was found Confirmed by ENRICO AREVALO (2) on 12/17/2017 4:44:17 PM Referred By: FRANCESCO Confirmed By:ENRICO AREVALO
== END 2017-12-12 10:23 | disposition home or self-care (01) ==
LOC: LABBT 10:22
PROVIDERS: ATTEND Podiatrist Foot & Ankle Surgery
DX: Z01.818 Encounter for other preprocedural examination (principal); T84.89XA Other specified complication of internal orthopedic prosthetic devices, implants and grafts, initial encounter
CPT/HCPCS: 80048; 85027; 93005; 93010

== ENCOUNTER 2017-12-22 09:56 | Day surgery (SDC) | payer MEDICARE ==
[2017-12-12 10:54] VITALS: BMI 31.1
[2017-12-22] MEDS ORDERED: CEFAZOLIN/Water 2 GM/20 ML SYRINGE ONE (10:55)
[2017-12-22] MEDS ORDERED: Fentanyl 100 MCG/2 ML VIAL ONE (11:58)
[2017-12-22] MEDS ORDERED: Neomycin-Polymyxin 1 ML AMP ONE (12:03)
[2017-12-22] MEDS ORDERED: Bupivacaine PF 0.5% 30 ML VIAL ONE (12:03)
[2017-12-22] MEDS ORDERED: Propofol 500 MG/50 ML VIAL ONE (12:06)
[2017-12-22] MEDS ORDERED: ePHEDrine/0.9% NaCl/PF SYRINGE 50 mg/10 ml ONE (15:28)
[2017-12-22] MEDS ORDERED: Ondansetron PF 4 MG/2 ML Vial ONE (15:28)
[2017-12-22] MEDS ORDERED: PROPOFOL 200 MG/20 ML VIAL ONE (15:28)
--- NOTE | 2017-12-22 17:22 | RAD ---
INTRAOPERATIVE FLUOROSCOPIC IMAGES LEFT FOOT: Date: 12-22-17 History: Left foot hardware removal. Comparison: 04-18-17 FINDINGS: Fluoroscopic guidance was provided for Dr. Duval for hardware removal. Images demonstrate removal of the screws transfixing the third and fourth toes. The screw transfixing the second toe as well as th e screws overlying the second and third metatarsals remain in place on provided fluoroscopic images. Three separate fluoroscopic images of the left forefoot are submitted for interpretation. Correlation with intraoperative findings recommended. POS: [facility]
--- NOTE | 2017-12-25 10:59 | OP ---
DATE OF PROCEDURE: 12/22/2017 SURGEON: Cait Duval DPM. PREOPERATIVE DIAGNOSIS: Problematic hardware, left foot, digits 3 and 4. POSTOPERATIVE DIAGNOSIS: Problematic hardware, left foot, digits 3 and 4. PROCEDURE: Removal of hardware digits 3 and 4, left foot. ANESTHESIA: General with local foot block. HEMOSTASIS: Pneumatic ankle tourniquet at 250 mmHg. ESTIMATED BLOOD LOSS: Less than 5 mL. MATERIALS: 4-0 Vicryl. INJECTABLES: 20 mL of 0.5% Marcaine plain. DESCRIPTION OF PROCEDURE: The patient was brought into the operating room and placed on the operatin g table in supine position. Well-padded pneumatic ankle tourniquet was placed about the patient's le ft ankle. Following administration of IV anesthesia, local foot block was given utilizing 20 mL of 0 .5% Marcaine plain. The foot was then scrubbed, prepped and draped in the usual aseptic manner. Esm arch bandage was used to exsanguinate the patient's left foot and pneumatic ankle tourniquet was then inflated to 250 mmHg which provided adequate hemostasis throughout the entire procedure. Next, atte ntion was then directed to the distal aspect of the patient's second, third, and fourth digit where a stab incision was made over the distal aspect of the digit. Using fluoroscopy, the head of the each screw was then identified and K-wire was inserted in digits 3 and 4. It was attempted in second dig it, but due to a bony growth the second digit screw was left intact. Next, upon insertion of K-wire to the 3rd and 4th digits, the corresponding screw trackless trolley driver was then used to remove the implanted screw s. The wounds were irrigated with copious amounts of sterile normal saline and mixture. The skin was closed utilizing 3-0 Prolene in a simple interrupted suture technique in all three digits. Ligh t compressive dressing was placed on each digit. The pneumatic ankle tourniquet was released with pr ompt hyperemic response noted to all digits of the left foot. DISCHARGE SUMMARY: The patient tolerated the procedure and anesthesia and was transferred to the rec overy room with vital signs stable and vascular status intact to all digits of the left foot. Follow ing period of postoperative monitoring, the patient is to be discharged home. He is advised to call should he have any problems prior to the first postoperative appointment.
== END 2017-12-22 15:25 | disposition home or self-care (01) ==
LOC: SDC 09:56
PROVIDERS: ATTEND Podiatrist Foot & Ankle Surgery
PROC: 0SPN04Z Removal of Internal Fixation Device from Left Metatarsal-Phalangeal Joint, Open Approach (ICD-10-PCS; principal; 2017-12-22)
DX: S93.125D Dislocation of metatarsophalangeal joint of left lesser toe(s), subsequent encounter (principal); Z79.82 Long term (current) use of aspirin; Z79.899 Other long term (current) drug therapy; Z88.5 Allergy status to narcotic agent; Z98.890 Other specified postprocedural states
CPT/HCPCS: 76000; J2405; J2704; J3010; S0020